=== PATIENT | male | born 1950 | race Caucasian/White ===

== ENCOUNTER 2017-08-29 05:18 | Day surgery (SDC) | payer MEDICARE, OTHER ==
[2017-08-29] MEDS ORDERED: MIDAZOLAM HCL 2 MG/2ML VIAL ONE (06:47)
[2017-08-29] MEDS ORDERED: FENTANYL PF 100MCG/2ML AMPUL ONE (06:47)
[2017-08-29] MEDS ORDERED: LIDOCAINE 1% INJ 50 ML MDV IJ ONE (06:48)
[2017-08-29] MEDS ORDERED: methylPREDNISolone ACETATE 80 MG/ML VIAL ONE (06:48)
[2017-08-29] MEDS ORDERED: HYDROCODONE/APAP 5/325MG 1 EACH TABLET ONE (08:19)
== END 2017-08-29 09:15 | disposition home or self-care (01) ==
LOC: DS 05:18
PROVIDERS: ATTEND Specialist
DX: M23.222 Derangement of posterior horn of medial meniscus due to old tear or injury, left knee (principal); M23.201 Derangement of unspecified lateral meniscus due to old tear or injury, left knee; I10 Essential (primary) hypertension; M22.42 Chondromalacia patellae, left knee; M23.42 Loose body in knee, left knee
CPT/HCPCS: 29880; 36415; 86850; 86921 ×2; 88304; 88305; 88311; A4217; A6253 ×2; J0690; J1040; J2250; J2704; J3010; J3490 ×2